=== PATIENT | female | born 2005 | race African-American/Black ===

== ENCOUNTER 2023-11-02 12:49 | Emergency (ER) | payer MEDICAID ==
[~2023-11-02] VITALS: Ht 157.5 cm; Wt 60.3 kg
[2023-11-02 13:03] VITALS: TEMP 98.4; O2SAT 99
[2023-11-02] MEDS ORDERED: IBUP-2029 MT (13:40)
[2023-11-02] MEDS ORDERED: METH-653 MT (13:40)
[2023-11-02 14:15] VITALS: BP 135/78; PULSE 87; RESP 17
== END 2023-11-02 14:17 | disposition home or self-care (01) ==
LOC: ER 13:46
DX: S16.1XXA Strain of muscle, fascia and tendon at neck level, initial encounter (principal); X58.XXXA Exposure to other specified factors, initial encounter; Y93.89 Activity, other specified; Y92.89 Other specified places as the place of occurrence of the external cause; Y99.8 Other external cause status
CPT/HCPCS: 99281; 99283